=== PATIENT | female | born 1975 | race American Indian/Alaskan Native ===

== ENCOUNTER 2016-05-11 06:20 | Day surgery (SDC) | payer OTHER ==
--- NOTE | 2016-05-11 07:13 | Anesthesia Consultation ---
Anesthesia Consult and Med Hx Date of service: 05/11/16 - Airway Anesthetic Teeth Evaluation: Good ROM Head & Neck: Adequate Mental/Hyoid Distance: Adequate Mallampati Class: Class II Intubation Access Assessment: Probably Good - Pulmonary Exam CTA: Yes (blbs clear) - Cardiac Exam Cardiac Exam: RRR - Pre-Operative Health Status ASA Pre-Surgery Classification: ASA3 Proposed Anesthetic Plan: MAC - Pulmonary Hx Smoking: No - Cardiovascular System Hx Hypertension: Yes - Central Nervous System Hx Neuromuscular Disorder: Yes (OA knee pain) - Endocrine Hx Non-Insulin Dependent Diabetes: No
--- NOTE | 2016-05-11 07:14 | Anesthesia Day of Surgery ---
Anesthesia Day of Surgery - Day of Surgery Patient Examined: Yes Patient H&P Reviewed: Yes Patient is NPO: Yes Beta Blockers: No Cardiac Clearance: No Pulmonary Clearance: No
[2016-05-11] MEDS ORDERED: WATER FOR IRRIG STERILE IR ONE (07:22)
[2016-05-11] MEDS ORDERED: NACL 0.9% 1000 ML 1,000 ML IV SCH (08:00)
[2016-05-11] MEDS ORDERED: DIPRIVAN 10 MG/ML IV ONE ×2 (08:04→08:39)
--- NOTE | 2016-05-11 08:42 | Operative Report ---
Operative Report Operative Report: EGD Op Report DATE 05/11/2016 SURGERY: Upper endoscopy. SURGEON: Roberto Barros M.D. PROCESS TECH: Ty Phelps MD PRE OP DX: dyspepsia POST OP DX: Hiatal hernia and gastric polyps TYPE OF ANESTHESIA: MAC. ESTIMATED BLOOD LOSS: None. COMPLICATIONS: None. SPECIMENS REMOVED: Gastric polyp FINDINGS: 1. Small hiatal hernia. 2. Multiple Gastric Polyps on cardia and body of stomach 2. Otherwise, normal esophagus, stomach and first portion of duodenum. INDICATIONS:INDICATION FOR PROCEDURE: Patient is a 40-year-old female with a long history of morbid obesity. She is planned to have a weight loss procedure and is here for preoperative planning EGD. PROCEDURE DETAILS: After consent was reviewed, patient was taken back to the operating room where patient was placed in the left lateral decubitus position and a bite block was placed in the mouth. After a time-out was called, MAC anesthesia was initiated. I then passed the endoscope into her oropharynx, into her esophagus, visualized the entire esophagus, which was all within normal limits. I then visualized the stomach and the first portion of the duodenum and there were no abnormalities I could clearly visualize. I then retroflexed the scope in the stomach and visualized the hiatus and I could see a small hiatal hernia. Also multiple sub-centimeter polyps were seen over the cardia and body of the stomach (approx 6-7). I then proceed to biopsy the largest one with cold forceps. I then desufflated the stomach and removed the endoscope. Patient tolerated procedure well and was transferred to recovery room in good and stable condition.
--- NOTE | 2016-05-11 08:47 | Discharge Summary ---
Providers - Providers Date of discharge: 05/11/16 Attending physician: MAI KOVACS Primary care physician: SUZY RIVAS Hospitalization Condition: Stable Procedures: EGD with gastric biopsy Hospital course: patient came for outpatient EGD Disposition: DISCHARGED TO HOME OR SELFCARE Core Measure Documentation - Palliative Care Palliative Care/ Comfort Measures: Not Applicable - Core Measures Any of the following diagnoses?: none Exam - Physical Exam Narrative exam: unchanged from preop - Constitutional Vitals: Temp Pulse Resp BP Pulse Ox 98.7 F 97 H 16 135/76 97 05/11/16 08:34 05/11/16 08:34 05/11/16 08:34 05/11/16 08:34 05/11/16 08:34 Plan Activity: no restrictions Diet: low carbohydrate Follow up with: SUZY RIVAS MD, PHD [Primary Care Provider] - 7 Days
[2016-05-11 09:02] VITALS: BP 166/93
--- NOTE | 2016-05-11 09:28 | Post Anesthesia Evaluation ---
- Post Anesthesia Evaluation Patient Participated: No (pt resting) Airway Patent: Yes Stable Respiratory Function: Yes Nausea/Vomiting: No Temp > 96.8F: Yes Pain Manageable: Yes Adequeate Hydration: Yes Anesthesia Complications: No Block Receding Appropriately: Not Applicable Patient on Ventilator: No
== END 2016-05-11 06:21 | disposition home or self-care (01) ==
LOC: GIO 06:20
PROVIDERS: ATTEND Specialist
DX: K31.7 Polyp of stomach and duodenum (principal); K44.9 Diaphragmatic hernia without obstruction or gangrene; I10 Essential (primary) hypertension; M13.869 Other specified arthritis, unspecified knee; G47.30 Sleep apnea, unspecified; E66.01 Morbid (severe) obesity due to excess calories; Z68.43 Body mass index [BMI] 50.0-59.9, adult; Z82.49 Family history of ischemic heart disease and other diseases of the circulatory system
CPT/HCPCS: 43239; 81025; 88305; 88342; J2704